=== PATIENT | male | born 1980 | race Two or more races ===

== ENCOUNTER 2025-10-11 13:43 | Emergency (ER) | payer BC ==
[~2025-10-11] VITALS: Ht 170.2 cm; Wt 124.7 kg
[2025-10-11] MEDS ORDERED: TOPROL XL25 M1 PO (14:12)
[2025-10-11] MEDS ORDERED: AMLODIPINE-OLM1 EAC2 (14:13)
[2025-10-11] MEDS ORDERED: SIMVASTATIN5 MG (14:13)
[2025-10-11] MEDS ORDERED: 0.9 % SODIUM CHLORIDE 1,000 ML IV ONE (16:00)
[2025-10-11] MEDS ORDERED: ONDANSETRON HCL 2 MG/ML VIAL ONE (16:07)
[2025-10-11] MEDS ORDERED: FAMOTIDINE/PF 20 MG/2 ML VIAL ONE (16:07)
[2025-10-11] MEDS ORDERED: ONDANSETRON HCL 4 MG in 0.9 % SODIUM CHLORIDE 50 ML IV ONE (16:15)
[2025-10-11] MEDS ORDERED: FAMOTIDINE/PF 20 MG in 0.9 % SODIUM CHLORIDE 8 ML IV PUSH ONE (16:15)
[2025-10-11 16:31] LABS: BASO % 0.8 % (0.1-1.2); EOS # 0.24 (0.04-0.54); EOS % 4.1 % (0.7-7.0); LYMPH # 2.66 (1.18-3.74); LYMPH % 44.9 % (19.3-53.1); MEAN PLATELET VOLUME 10.60 fl (9.4-12.4); MONO # 0.69 (0.24-0.82); MONO % 11.7 % (4.7-12.5); NEUT # 2.28 (1.56-6.13); NEUT % 38.5 % (34.0-71.1); RED CELL DISTRIBUTION WIDTH 13.3 % (11.6-14.4)
[2025-10-11 16:56] LABS: URINE APPEARANCE Clear; URINE BILIRRUBIN Negative (NEGATIVE); URINE BLOOD Negative; URINE COLOR Yellow; URINE GLUCOSE Negative (NEGATIVE); URINE KETONE Negative (NEGATIVE); URINE LEUKOCYTE Negative; URINE NITRATE Negative; URINE PROTEIN Negative (NEGATIVE); URINE UROBILINOGEN 0.2 E.U./dl
[2025-10-11 16:59] LABS: INR 1.05
[2025-10-11 17:01] LABS: URINE EPITHELIAL CELLS 3.3 uL (0.0-38.8); URINE RBC 4.5 uL (0.0-20.8); URINE WBC 8.7 uL (0.0-23.2)
[2025-10-11 17:07] LABS: URINE BACTERIA 3.4 uL (0.0-1933)
[2025-10-11 17:08] LABS: URINE CAST 0.00 uL (0.0-1.40)
[2025-10-11 17:14] LABS: ALT/SGPT 65.0 U/L (12-78); AST/SGOT 30.0 U/L (15-37); BILIRUBIN TOTAL 0.28 mg/dL (0.3-1.2); BUN CREA RATIO 12.0 (7.0-25.0); CREATININE SERUM 0.84 mg/dL (0.70-1.30); GFR 99.26; GLOBULINA 4.2 G/DL (2.4-3.5); GLUCOSE FASTING 98.0 mg/dL (65-100); OSMOLALITY SERUM 284.0 MOSM/KG (275-295)
[2025-10-11] MEDS ORDERED: NORFLEX100MG PO (19:43)
[2025-10-11] MEDS ORDERED: IBU600 MG PO (19:43)
[2025-10-11] MEDS ORDERED: PEPCID AC20 MG PO (19:43)
== END 2025-10-11 20:31 | disposition home or self-care (01) ==
LOC: ER 13:44
PROVIDERS: General Practice
DX: R10.32 Left lower quadrant pain (principal); R10.9 Unspecified abdominal pain; I10 Essential (primary) hypertension